=== PATIENT | female | born 1985 | race African-American/Black ===

== ENCOUNTER 2022-01-02 09:42 | Emergency (ER) | payer BC, OTHER ==
[~2022-01-02] VITALS: Ht 165.1 cm; Wt 78.5 kg
[2022-01-02] MEDS ORDERED: KETOROLAC TROMETHAMINE 30 MG/ML VIAL IV STA (10:29)
[2022-01-02] MEDS ORDERED: DEXAMETHASONE SOD PHOS 10 MG/1 ML VIAL IV ONE (10:30)
[2022-01-02] MEDS ORDERED: SODIUM CHLORIDE 0.9% 1000ML 1,000 ML IV SCH (10:30)
[2022-01-02] MEDS ORDERED: METRONIDAZOLE 500MG/NS 100ML 100 ML IV ONE (10:45)
[2022-01-02] MEDS ORDERED: CEFTRIAXONE 2 GM in SODIUM CHLORIDE 0.9% 100 ML IV ONE (10:45)
[2022-01-02] MEDS ORDERED: IOPAMIDOL 370 MG/ML 100 ML INFUS..BTL INJ ONE (10:50)
[2022-01-02] MEDS ORDERED: DEXAMETHASONE SOD PHOS INJ 4 MG/ML SDV ONE (10:56)
[2022-01-02] MEDS ORDERED: CEFTRIAXONE 1 GM VIAL ONE (10:57)
[2022-01-02] MEDS ORDERED: KETOROLAC TROMETHAMINE 30 MG/ML VIAL ONE (10:57)
[2022-01-02] MEDS ORDERED: AMOXICILLIN500 MG PO (12:57)
[2022-01-02] MEDS ORDERED: IBUPROFEN600 MG PO (12:58)
[2022-01-02] MEDS ORDERED: HYDROCODON-ACE1 EAC9 PO (12:59)
== END 2022-01-02 13:15 | disposition home or self-care (01) ==
LOC: FSED 10:15
DX: K04.7 Periapical abscess without sinus (principal)
CPT/HCPCS: 70491; 80053; 81003; 81025; 85025; 96374; 96375; 99284; J0696 ×2; J1100 ×2; J1885; J7050; Q9967